=== PATIENT | female | born 1940 | race Caucasian/White ===

== ENCOUNTER 2019-05-07 22:07 | Emergency (ER) | payer OTHER ==
[~2019-05-07] VITALS: Ht 134.6 cm; Wt 67.1 kg
[~2019-05-07 22:07] MED LIST: GLUCOPHAGE XR500 MG; TRADJENTA5 MG
[2019-05-07] MEDS ORDERED: JANUVIA100 MG (22:20)
[2019-05-07] MEDS ORDERED: METFORMIN HCL500 MG (22:21)
== END 2019-05-07 23:59 | disposition home or self-care (01) ==
LOC: ER 22:07
DX: S91.201A Unspecified open wound of right great toe with damage to nail, initial encounter (principal); W23.0XXA Caught, crushed, jammed, or pinched between moving objects, initial encounter; Y93.89 Activity, other specified; Y92.481 Parking lot as the place of occurrence of the external cause; Y99.8 Other external cause status

== ENCOUNTER 2020-05-21 14:19 | Emergency (ER) | payer OTHER ==
[~2020-05-21] VITALS: Ht 147.3 cm; Wt 67.1 kg
[~2020-05-21 14:19] MED LIST changes: +JANUVIA100 MG; +METFORMIN HCL500 MG
[2020-05-21] MEDS ORDERED: ZESTRIL2.5 MG (14:29)
[2020-05-21] MEDS ORDERED: VITAMIN D310 MC5 (14:30)
[2020-05-21] MEDS ORDERED: FLUCONAZOLE200 MG PO (16:53)
== END 2020-05-21 17:50 | disposition home or self-care (01) ==
LOC: ER 14:19
DX: B37.0 Candidal stomatitis (principal)

== ENCOUNTER 2020-11-14 11:02 | Emergency (ER) | payer OTHER ==
[~2020-11-14] VITALS: Ht 139.7 cm; Wt 69.4 kg
[~2020-11-14 11:02] MED LIST changes: +FLUCONAZOLE200 MG PO; +VITAMIN D310 MC5; +ZESTRIL2.5 MG
[2020-11-14] MEDS ORDERED: DEBROX OTIC (13:21)
[2020-11-14] MEDS ORDERED: FLONASE ALLERG9.9 ML NASAL (13:21)
== END 2020-11-14 14:17 | disposition home or self-care (01) ==
LOC: ER 11:02
DX: H61.21 Impacted cerumen, right ear (principal)

== ENCOUNTER 2021-06-08 12:09 | Emergency (ER) | payer OTHER ==
[~2021-06-08] VITALS: Ht 142.2 cm; Wt 65.3 kg
[~2021-06-08 12:09] MED LIST changes: +DEBROX OTIC; +FLONASE ALLERG9.9 ML NASAL
[2021-06-08] MEDS ORDERED: DICLOFENAC POTA50 MG PO (15:24)
[2021-06-08] MEDS ORDERED: ORPHENADRINE C100 MG PO (15:24)
== END 2021-06-08 16:13 | disposition home or self-care (01) ==
LOC: ER 12:09
DX: S80.02XA Contusion of left knee, initial encounter (principal); M54.2 Cervicalgia; M62.838 Other muscle spasm; W18.09XA Striking against other object with subsequent fall, initial encounter; Y93.89 Activity, other specified; Y92.89 Other specified places as the place of occurrence of the external cause; Y99.8 Other external cause status

== ENCOUNTER 2021-07-23 14:47 | Emergency (ER) | payer OTHER ==
[~2021-07-23] VITALS: Ht 137.2 cm; Wt 61.2 kg
[~2021-07-23 14:47] MED LIST changes: +DICLOFENAC POTA50 MG PO; +ORPHENADRINE C100 MG PO
[2021-07-23] MEDS ORDERED: CORTISPORIN EAR10 M1 OT (17:11)
== END 2021-07-23 18:03 | disposition home or self-care (01) ==
LOC: ER 14:47
DX: H93.8X3 Other specified disorders of ear, bilateral (principal); L29.8 Other pruritus